=== PATIENT | male | born 1960 ===

== ENCOUNTER 2018-12-12 06:15 | Day surgery (SDC) | payer OTHER ==
[~2018-12-12 06:15] MED LIST: TRAMADOL HCL50 MG PO; VALSARTAN PO
[2018-12-12] MEDS ORDERED: COLACE100 MG PO (08:05)
[2018-12-12] MEDS ORDERED: PERCOCET 5-3251 EACH PO (08:05)
== END 2018-12-12 14:41 | disposition home or self-care (01) ==
LOC: CIR.AMB 06:15
DX: K64.8 Other hemorrhoids (principal)